=== PATIENT | female | born 1985 | race Caucasian/White ===

== ENCOUNTER 2017-05-25 17:08 | Emergency (ER) | payer SELFPAY ==
--- NOTE | 2017-05-25 17:30 | ED.PDOC ---
History of Present Illness - General Chief Complaint: Back Pain or Injury Stated Complaint: neck/back pain Time Seen by Provider: 05/25/17 17:29 Source: patient Exam Limitations: no limitations - History of Present Illness Initial Comments: Karen Serrano 32 y/o female stated for the last 2 years she had been having dull ache on her neck and mid back on and off.Denies history of trauma ,overuse injuries. No bowel or bladder dysfunction.No fever,no weight loss Timing/Duration: intermittent, other - 2 years on and off Quality/Severity: moderate Back Pain Location: C-spine, T-spine Back Pain Radiation: other - none Method of Injury/Prior Injury: unknown Improving Factors: rest Worsening Factors: movement Associated Symptoms: muscle spasms Allergies/Adverse Reactions: Allergies Sulfamethoxazole w/Trimethoprim [From Bactrim] Allergy (Verified 12/29/15 17:13) Home Medications: Ambulatory Orders HYDROcodone 10MG/APAP 325MG [[place] 10/325] 0 ea PO .Q4H PRN 12/29/15 Oxycodone HCl [Oxycontin] 15 mg PO Q4H PRN 12/29/15 tiZANidine [Zanaflex] 4 mg PO BEDTIME #20 tab 05/25/17 Review of Systems - Review of Systems Constitutional: States: no symptoms reported EENTM: States: no symptoms reported Respiratory: States: no symptoms reported Cardiology: States: no symptoms reported Gastrointestinal/Abdominal: States: no symptoms reported Genitourinary: States: no symptoms reported Musculoskeletal: States: back pain - mid back, neck pain Skin: States: no symptoms reported Neurological: States: no symptoms reported Endocrine: States: no symptoms reported Hematologic/Lymphatic: States: no symptoms reported Past Medical History (General) - Patient Medical History Hx Seizures: Yes Hx Stroke: No Hx Dementia: No Hx Asthma: No Hx of COPD: No Hx Cardiac Disorders: Yes - afib, hole in heart Hx Congestive Heart Failure: No Hx Pacemaker: No Hx Hypertension: No Hx Thyroid Disease: No Hx Diabetes: No Hx Gastroesophageal Reflux: Yes Hx Renal Disease: No Hx Cancer: No Hx of HIV: No Hx Hepatitis C: No Hx MRSA: Yes - Thigh Wound MRSA Source:: Wound Surgical History: other - x 4 - Vaccination History Hx Tetanus, Diphtheria Vaccination: Yes Hx Influenza Vaccination: Yes - 2013 Hx Pneumococcal Vaccination: No - Social History Hx Tobacco Use: Yes Hx Chewing Tobacco Use: No Hx Alcohol Use: No Hx Substance Use: No Hx Substance Use Treatment: No Hx Depression: Yes Hx Physical Abuse: No Hx Emotional Abuse: No Hx Suspected Abuse: No - Activities of Daily Living Patient Lives Alone: No - family - Female History Hx Last Menstrual Period: 05/25/17 Patient : No - unknown Family Medical History - Family History Mother Age (years): 47 Living Status: Still Living Hx Family Hypertension: Yes - parents Hx Family Cancer: Yes Father Living Status: Still Living Hx Family Hypertension: Yes Physical Exam - Physical Exam General Appearance: Alert, Comfortable, No apparent distress Eyes, Ears, Nose, Throat Exam: PERRL/EOMI, normal ENT inspection, TMs normal, pharynx normal Neck Exam: non-tender, full range of motion, normal alignment, normal inspection , muscle spasm Cardiovascular/Respiratory: regular rate, rhythm, no M/R/G, normal peripheral pulses, no JVD, no respiratory distress Peripheral Pulses: radial,right: 1+, radial,left: 1+ Gastrointestinal/Abdominal: normal bowel sounds, non tender, soft, no organomegaly Back Exam: normal inspection, muscle spasm - thoracolumbar Extremity Exam: no evidence of injury, normal range of motion, non-tender, no pedal edema Neurologic: no motor/sensory deficits, alert, normal mood/affect, oriented x 3 Skin Exam: normal color, warm/dry Progress - Progress Progress: 05/25/17 17:47 Vital Signs - 8 hr 05/25/17 17:10 Temperature 97.6 F Pulse Rate [ 82 left brachial] Respiratory 20 Rate Blood Pressure 125/87 [left brachial] O2 Sat by Pulse 96 Oximetry Departure - Departure Clinical Impression: Muscle spasms of neck Time of Disposition: 18:23 Disposition: Discharge to Home or Self Care Condition: Good Departure Forms: ED Discharge - Pt. Copy, Patient Portal Self Enrollment Instructions: DI for Neck Pain, Chronic Neck Pain, Neck Pain (Alternative Therapy) Diet: other Referrals: EDNA PAN IV, FNP [Primary Care Provider] - 1-2 Weeks Prescriptions: tiZANidine [Zanaflex] 4 mg PO BEDTIME #20 tab Home Medications: Ambulatory Orders HYDROcodone 10MG/APAP 325MG [[place] 10/325] 0 ea PO .Q4H PRN 12/29/15 Oxycodone HCl [Oxycontin] 15 mg PO Q4H PRN 12/29/15 tiZANidine [Zanaflex] 4 mg PO BEDTIME #20 tab 05/25/17
[2017-05-25 17:33] VITALS: TEMP 97.6
[2017-05-25] MEDS ORDERED: ORPHENADRINE CITRATE 30 MG/ML AMP IM ONE (17:45)
[2017-05-25] MEDS ORDERED: KETOROLAC TROMETHAMINE INJ 30 MG/ML VIAL IM ONE (17:45)
[2017-05-25 18:35] VITALS: BP 105/75; O2SAT 98
== END 2017-05-25 18:34 | disposition home or self-care (01) ==
LOC: ER 17:08
DX: M62.838 Other muscle spasm (principal); I48.91 Unspecified atrial fibrillation; K21.9 Gastro-esophageal reflux disease without esophagitis; Z86.14 Personal history of Methicillin resistant Staphylococcus aureus infection; Z88.2 Allergy status to sulfonamides; Z79.899 Other long term (current) drug therapy; Z87.891 Personal history of nicotine dependence
CPT/HCPCS: J1885; J2360

== ENCOUNTER 2017-12-05 15:37 | Emergency (ER) | payer SELFPAY ==
[2017-12-05 16:30] VITALS: BP 124/77; TEMP 97.4; O2SAT 97
--- NOTE | 2017-12-05 17:31 | ED.PDOC ---
History of Present Illness - General Chief Complaint: Abdominal Pain Stated Complaint: abdominal pain Time Seen by Provider: 12/05/17 17:19 Information Source: patient Exam Limitations: no limitations - History of Present Illness Initial Comments: Karen Serrano 32 y/o female seen in ER with protruding ventral hernia during coughing episodes.No nausea/vomiting ,no abdominal distention. Abdominal Pain Onset Location: generalized abdomen Pain Radiation: no radiation Quality: waxing/waning Timing/Duration: 7-24 hours, changing over time Improving Factors: other - laying down Worsening Factors: other - standing,coughing Review of Systems - Review of Systems Constitutional: States: no symptoms reported EENTM: States: no symptoms reported Respiratory: States: no symptoms reported Cardiology: States: see HPI Gastrointestinal/Abdominal: States: see HPI Genitourinary: States: no symptoms reported All other Systems: Reviewed and Negative, No Change from Baseline Past Medical History (General) - Patient Medical History Hx Seizures: Yes Hx Stroke: No Hx Dementia: No Hx Asthma: No Hx of COPD: No Hx Cardiac Disorders: Yes - afib, hole in heart Hx Congestive Heart Failure: No Hx Pacemaker: No Hx Hypertension: No Hx Thyroid Disease: No Hx Diabetes: No Hx Gastroesophageal Reflux: Yes Hx Renal Disease: No Hx Cancer: No Hx of HIV: No Hx Hepatitis C: No Hx MRSA: Yes - Thigh Wound MRSA Source:: Wound Surgical History: other - c-sections - Vaccination History Hx Tetanus, Diphtheria Vaccination: Yes Hx Influenza Vaccination: No Hx Pneumococcal Vaccination: No - Social History Hx Tobacco Use: Yes Hx Chewing Tobacco Use: No Hx Alcohol Use: No Hx Substance Use: No Hx Substance Use Treatment: No Hx Depression: Yes Hx Physical Abuse: No Hx Emotional Abuse: No Hx Suspected Abuse: No - Female History Patient is a Female of Child Bearing Age (10 -59 yrs old): Yes Hx Last Menstrual Period: 05/25/17 Patient : No - unknown Family Medical History - Family History Mother Age (years): 47 Living Status: Still Living Hx Family Hypertension: Yes - parents Hx Family Cancer: Yes Father Living Status: Still Living Hx Family Hypertension: Yes Physical Exam - Physical Exam General Appearance: Alert, Comfortable, No apparent distress Eyes, Ears, Nose, Throat Exam: normal ENT inspection, pharynx normal Neck: non-tender, full range of motion, supple Respiratory: chest non-tender, lungs clear, normal breath sounds Cardiovascular/Chest: normal peripheral pulses, regular rate, rhythm, no murmur Peripheral Pulses: No deficit Gastrointestinal/Abdominal: normal bowel sounds, non tender, soft, other - protruding ventral hernia reducible non incarcerated Back Exam: no CVA tenderness, no vertebral tenderness Extremity: no pedal edema, no calf tenderness Skin Exam: normal color, warm/dry Lymphatic: no adenopathy Progress - Progress Progress: 12/05/17 17:34 Last Vital Signs Temp 97.4 F L 12/05/17 16:26 Pulse 76 12/05/17 16:26 Resp 16 12/05/17 16:26 BP 124/77 12/05/17 16:26 Pulse Ox 97 12/05/17 16:26 Departure - Departure Clinical Impression: Ventral hernia Qualifiers: Obstruction and gangrene presence: without obstruction or gangrene Qualified Code(s): K43.9 - Ventral hernia without obstruction or gangrene Time of Disposition: 17:36 Disposition: Discharge to Home or Self Care Condition: Good Departure Forms: ED Discharge - Pt. Copy, Patient Portal Self Enrollment Instructions: DI for Ventral Hernia, Ventral Hernia Referrals: EDNA PAN IV SLEEVE TURNER [Primary Care Provider] - 1-2 Weeks Home Medications: Ambulatory Orders NK [NK] 12/05/17 Additional Instructions: Follow up with primary Md for referral to surgeon;Need to wear binder in am and off at bedtime when taking shower ,having bowel movement
== END 2017-12-05 17:53 | disposition left against medical advice (07) ==
LOC: ER 15:37
DX: K43.9 Ventral hernia without obstruction or gangrene (principal); I48.91 Unspecified atrial fibrillation; K21.9 Gastro-esophageal reflux disease without esophagitis

== ENCOUNTER 2017-12-06 18:02 | Emergency (ER) | payer SELFPAY ==
[2017-12-06 18:34] VITALS: TEMP 98
--- NOTE | 2017-12-06 18:53 | ED.PDOC ---
History of Present Illness - General Chief Complaint: Respiratory Problem Stated Complaint: chest congestion,cough Time Seen by Provider: 12/06/17 18:48 Source: patient Exam Limitations: no limitations - History of Present Illness Comments: Karen Serrano 32 y/o female came to ER with cough and congestion for the last 5 days no fever or chills no nausea,or vomiting,no SO Timing/Duration: constant, other - see hpi Cough Quality/Degree: dry cough Possible Cause: other - virus Improving Factors: nothing Worsening Factors: nothing Associated Symptoms: other - nasal congestion Respiratory Risk Factors: other - viral Allergies/Adverse Reactions: Allergies Sulfamethoxazole w/Trimethoprim [From Bactrim] Allergy (Verified 12/29/15 17:13) Home Medications: Ambulatory Orders NK [NK] 12/05/17 Review of Systems - Review of Systems Constitutional: States: no symptoms reported EENTM: States: see HPI, nose congestion Respiratory: States: see HPI, cough Cardiology: States: no symptoms reported Gastrointestinal/Abdominal: States: no symptoms reported Genitourinary: States: no symptoms reported All other Systems: Reviewed and Negative, No Change from Baseline Past Medical History (General) - Patient Medical History Hx Seizures: Yes Hx Stroke: No Hx Dementia: No Hx Asthma: No Hx of COPD: No Hx Cardiac Disorders: Yes - afib, hole in heart Hx Congestive Heart Failure: No Hx Pacemaker: No Hx Hypertension: No Hx Thyroid Disease: No Hx Diabetes: No Hx Gastroesophageal Reflux: Yes Hx Renal Disease: No Hx Cancer: No Hx of HIV: No Hx Hepatitis C: No Hx MRSA: Yes - Thigh Wound MRSA Source:: Wound Surgical History: other - x 4 - Vaccination History Hx Tetanus, Diphtheria Vaccination: Yes Hx Influenza Vaccination: No Hx Pneumococcal Vaccination: No - Social History Hx Tobacco Use: Yes Hx Chewing Tobacco Use: No Hx Alcohol Use: No Hx Substance Use: No Hx Substance Use Treatment: No Hx Depression: Yes Hx Physical Abuse: No Hx Emotional Abuse: No Hx Suspected Abuse: No - Female History Patient is a Female of Child Bearing Age (10 -59 yrs old): Yes Hx Last Menstrual Period: 05/25/17 Patient : No - unknown Family Medical History - Family History Mother Age (years): 47 Living Status: Still Living Hx Family Hypertension: Yes - parents Hx Family Cancer: Yes Father Living Status: Still Living Hx Family Hypertension: Yes Physical Exam - Physical Exam General Appearance: Alert, Comfortable, No apparent distress Eye Exam: bilateral normal ENT Exam: hearing grossly normal, TMs normal, pharynx normal, nasal congestion Neck: supple Respiratory: lungs clear, normal breath sounds, no respiratory distress Cardiovascular/Chest: regular rate, rhythm, no murmur Gastrointestinal/Abdominal: non tender, soft, no organomegaly Extremity: non-tender, normal inspection, no calf tenderness Skin Exam: normal color, warm/dry Progress - Progress Progress: 12/06/17 18:55 Last Vital Signs Temp 98 F 12/06/17 18:31 Pulse 110 H 12/06/17 18:31 Resp 20 12/06/17 18:47 BP 117/80 12/06/17 18:31 Pulse Ox 95 12/06/17 18:31 - Results/Orders Results/Orders: FLU A/B-negative - EKG/XRAY/CT XRAY: chest - no acute abnormalities Departure - Departure Clinical Impression: Viral URI with cough Time of Disposition: 19:37 Disposition: Discharge to Home or Self Care Departure Forms: ED Discharge - Pt. Copy, Patient Portal Self Enrollment Instructions: DI for Viral Upper Respiratory Infection -- Adult Home Medications: Ambulatory Orders NK [NK] 12/05/17 Additional Instructions: May use over the counter cough /cold medicine Delsym 2 teaspoons am/pm:Benadryl capsule-25 mg 1-2 capsules at bedtime for nasal congestion;Increase oral fluid intake ;Nasal Saline spray as needed for nasal congestion
--- NOTE | 2017-12-06 19:08 | RAD ---
EXAM DESCRIPTION: Chest,1 View CLINICAL HISTORY: cough COMPARISON: 03/22/2013 FINDINGS: Cardiac silhouette is within normal limits. There is no focal parenchymal or pleural disease. Visualized osseous structures are within normal limits. IMPRESSION: No evidence of acute cardiopulmonary disease. Electronically signed by: Dreek dArian 12/06/2017 7:08 PM [facility]
[2017-12-06 19:55] VITALS: BP 112/76; O2SAT 97
== END 2017-12-06 19:54 | disposition home or self-care (01) ==
LOC: ER 18:02
DX: J06.9 Acute upper respiratory infection, unspecified (principal); I48.91 Unspecified atrial fibrillation; K21.9 Gastro-esophageal reflux disease without esophagitis; Z87.891 Personal history of nicotine dependence

== ENCOUNTER 2017-12-27 20:58 | Emergency (ER) | payer SELFPAY ==
[2017-12-27] MEDS ORDERED: KETOROLAC TROMETHAMINE INJ 30 MG/ML VIAL IV ONE (21:19)
--- NOTE | 2017-12-27 21:24 | ED.PDOC ---
History of Present Illness - General Chief Complaint: Chest Pain/ME Time Seen by Provider: 12/27/17 21:08 Source: patient - History of Present Illness Initial Comments: SHE HAS BEEN HAVING CHEST PAINS NOW FOR TWO DAYS TIGHTNESS AND SHARP IS DESCRIBED BY THE PATIENT. NO RADIATION AND ABOUT 7/10. THE PAINS HAVE BEEN ASSOCIATED WITH SON AND NAUSEA. THE PATIENT ALSO VOICES THAT SHE HAS HAD DIARRHEA. Timing/Duration: days Severity/Quality: moderate Location: substernal Chest Pain Radiation: no radiation Improving Factors: nothing Worsening Factors: nothing Aspirin Treatment Today: no aspirin today Associated Symptoms: dizziness, shortness of breath Allergies/Adverse Reactions: Allergies Sulfamethoxazole w/Trimethoprim [From Bactrim] Allergy (Verified 12/29/15 17:13) Home Medications: Ambulatory Orders Diclofenac Potassium 50 mg PO BID #14 tab 12/27/17 Review of Systems - Review of Systems Constitutional: States: no symptoms reported EENTM: States: no symptoms reported Respiratory: States: no symptoms reported Cardiology: States: chest pain Gastrointestinal/Abdominal: States: no symptoms reported Genitourinary: States: no symptoms reported Musculoskeletal: States: no symptoms reported Skin: States: no symptoms reported Neurological: States: no symptoms reported Endocrine: States: no symptoms reported Hematologic/Lymphatic: States: no symptoms reported Past Medical History (General) - Patient Medical History Hx Seizures: Yes Hx Stroke: No Hx Dementia: No Hx Asthma: No Hx of COPD: No Hx Cardiac Disorders: Yes - afib, hole in heart Hx Congestive Heart Failure: No Hx Pacemaker: No Hx Hypertension: No Hx Thyroid Disease: No Hx Diabetes: No Hx Gastroesophageal Reflux: Yes Hx Renal Disease: No Hx Cancer: No Hx of HIV: No Hx Hepatitis C: No Hx MRSA: Yes - Thigh Wound MRSA Source:: Wound - Vaccination History Hx Tetanus, Diphtheria Vaccination: Yes Hx Influenza Vaccination: No Hx Pneumococcal Vaccination: No - Social History Hx Tobacco Use: Yes Hx Chewing Tobacco Use: No Hx Alcohol Use: No Hx Substance Use: No Hx Substance Use Treatment: No Hx Depression: Yes Hx Physical Abuse: No Hx Emotional Abuse: No Hx Suspected Abuse: No - Female History Hx Last Menstrual Period: 05/25/17 Patient : No - unknown Family Medical History - Family History Mother Age (years): 47 Living Status: Still Living Hx Family Hypertension: Yes - parents Hx Family Cancer: Yes Father Living Status: Still Living Hx Family Hypertension: Yes Physical Exam - Physical Exam General Appearance: Alert, Anxious, Well Developed, Well Groomed, Well Hydrated , Well Nourished Eyes, Ears, Nose, Throat Exam: PERRL/EOMI, normal ENT inspection Neck: non-tender, full range of motion, supple Respiratory: lungs clear, normal breath sounds Cardiovascular/Chest: normal peripheral pulses, regular rate, rhythm, no edema, no gallop, no JVD Peripheral Pulses: radial,right: 2+, radial,left: 2+ Gastrointestinal/Abdominal: normal bowel sounds, no organomegaly Rectal Exam: deferred Neurologic: no motor/sensory deficits, alert, normal mood/affect, oriented x 3 Skin Exam: normal color Progress - Results/Orders Results/Orders: EKG: HR OF 56, [place] INTERVAL OF 126, QRS OF 86, QTC OF 395, AXES OF 67 DEGREES. IMPRESSION: SINUS BRADYCARDIA, NO ACUTE INJURY PATTERN TROPONIN I LESS THAN 0.02 Departure - Departure Clinical Impression: Atypical chest pain Disposition: Discharge to Home or Self Care Condition: Good Departure Forms: ED Discharge - Pt. Copy, Patient Portal Self Enrollment Instructions: DI for Chest Pain Prescriptions: Diclofenac Potassium 50 mg PO BID #14 tab Home Medications: Ambulatory Orders Diclofenac Potassium 50 mg PO BID #14 tab 12/27/17
[2017-12-27 21:47] VITALS: TEMP 98; O2SAT 97
--- NOTE | 2017-12-27 22:01 | RAD ---
Clinical History : CHEST PAIN , MAIN Exam : Portable AP view of the chest 12/27/2017 9:18 PM [facility] Comparisons : Portable AP view of the chest December 06, 2017 Findings : The lungs are clear without focal consolidation or pleural effusion. The heart is normal in size. The mediastinal contours are normal in appearance. The thoracic spine is age appropriate. The shoulders are unremarkable. Limited evaluation of the upper abdomen demonstrates no gross abnormalities. Impression: No acute cardiopulmonary disease (stable appearing chest). Electronically signed by: Ji Salazar MD 12/27/2017 10:00 PM [facility]
[2017-12-27 23:05] VITALS: BP 109/52
== END 2017-12-27 22:45 | disposition home or self-care (01) ==
LOC: ER 20:58
DX: R07.89 Other chest pain (principal); I48.91 Unspecified atrial fibrillation; K21.9 Gastro-esophageal reflux disease without esophagitis; Z87.891 Personal history of nicotine dependence

== ENCOUNTER 2018-01-04 13:26 | Emergency (ER) | payer SELFPAY ==
[2018-01-04 13:42] VITALS: TEMP 97.4
[2018-01-04] MEDS ORDERED: KETOROLAC TROMETHAMINE INJ 30 MG/ML VIAL IV ONE (14:01)
--- NOTE | 2018-01-04 14:17 | RAD ---
PROCEDURE: XR CHEST 1 VIEW HISTORY: CP COMPARISON: 12/27/2017 TECHNIQUE: Single projection of the chest was done. FINDINGS: The lung kasper are well inflated . There are no discrete airspace infiltrates, pneumothoraces or pleural effusions. The pulmonary vascularity is normal. The cardiomediastinal silhouette is unremarkable for patient's age and sex. IMPRESSION: There is no acute pleural-parenchymal process seen in the imaged lung kasper. Location of Interpretation: [facility]iology Electronically signed by: Juancarlos Albert MD 01/04/2018 2:16 PM [facility] Workstation: [id number]
--- NOTE | 2018-01-04 14:20 | ED.PDOC ---
History of Present Illness - General Chief Complaint: Respiratory Problem Stated Complaint: recurrent pain with inspiration Time Seen by Provider: 01/04/18 14:00 Source: patient Exam Limitations: no limitations Additional Information: PT WAS SEEN 12/27 FOR SAME. C/O SHARP PAIN TO ANT CHEST. OCC RADIATION TO BACK. HAS TRIED OTC ANTACIDS WITHOUT RELIEF. - History of Present Illness Timing/Duration: 1 week Severity: moderate Improving Factors: nothing Associated Symptoms: nausea/vomiting, shortness of breath Allergies/Adverse Reactions: Allergies Sulfamethoxazole w/Trimethoprim [From Bactrim] Allergy (Verified 12/29/15 17:13) Home Medications: Ambulatory Orders Diclofenac Potassium 50 mg PO BID #14 tab 12/27/17 Doxycycline (Monohydrate) [Doxycycline Monohydrate] 100 mg PO BID #20 cap Indomethacin 50 mg PO TID PRN #14 cap 01/04/18 Review of Systems - Review of Systems Constitutional: Denies: chills, fever EENTM: States: no symptoms reported Respiratory: States: cough, short of breath, other - PROD WHITE SPUTUM. Denies : stridor, wheezing Cardiology: States: chest pain, edema. Denies: palpitations, syncope Gastrointestinal/Abdominal: States: no symptoms reported. Denies: nausea, vomiting Genitourinary: States: no symptoms reported Skin: States: no symptoms reported Neurological: States: no symptoms reported Hematologic/Lymphatic: States: no symptoms reported Past Medical History (General) - Patient Medical History Hx Seizures: Yes Hx Stroke: No Hx Dementia: No Hx Asthma: No Hx of COPD: No Hx Cardiac Disorders: Yes - afib, hole in heart Hx Congestive Heart Failure: No Hx Pacemaker: No Hx Hypertension: No Hx Thyroid Disease: No Hx Diabetes: No Hx Gastroesophageal Reflux: Yes Hx Renal Disease: No Hx Cancer: No Hx of HIV: No Hx Hepatitis C: No Hx MRSA: Yes - Thigh Wound MRSA Source:: Wound Surgical History: other - Vaccination History Hx Tetanus, Diphtheria Vaccination: Yes Hx Influenza Vaccination: No Hx Pneumococcal Vaccination: No - Social History Hx Tobacco Use: Yes Hx Chewing Tobacco Use: No Hx Alcohol Use: No Hx Substance Use: No Hx Substance Use Treatment: No Hx Depression: Yes Hx Physical Abuse: No Hx Emotional Abuse: No Hx Suspected Abuse: No - Female History Hx Last Menstrual Period: 05/25/17 Patient : No - unknown Family Medical History - Family History Mother Age (years): 47 Living Status: Still Living Hx Family Hypertension: Yes - parents Hx Family Cancer: Yes Father Family History: Unknown Living Status: Still Living Hx Family Hypertension: Yes Physical Exam - Physical Exam General Appearance: Alert, No apparent distress Eye Exam: bilateral normal Ears, Nose, Throat: hearing grossly normal, normal ENT inspection, normal pharynx Neck: non-tender, full range of motion, supple Respiratory: lungs clear, no respiratory distress Cardiovascular/Chest: regular rate, rhythm, no murmur Gastrointestinal/Abdominal: normal bowel sounds, non tender, soft, no organomegaly Extremity: normal range of motion, non-tender, no pedal edema Neurologic: no motor/sensory deficits, alert, normal mood/affect Skin Exam: normal color, warm/dry Lymphatic: no adenopathy Progress - Progress Progress: 01/04/18 15:27 PT STILL C/O PAIN. REVIEWED POSSIBLE CAUSES, AND PT STATES SHE DID NOT FILL RX FROM LAST VISIT (DICLOFENAC). SHE ASKED IF ANXIETY COULD BE PLAYING A PART OR ALL OF THE SX'S. 01/04/18 15:30 - EKG/XRAY/CT EKG: Sinus - 62, NL AXIS, NL INTERVALS, , no ST T wave changes, Unchanged from - 12/27/2016 XRAY: chest - LEONEL Departure - Departure Clinical Impression: Bronchitis, Chest wall pain, Anxiety ICD-10 Supporting Text: DDX: PLEURISY Time of Disposition: 15:35 Disposition: Discharge to Home or Self Care Condition: Good Departure Forms: ED Discharge - Pt. Copy, Patient Portal Self Enrollment Instructions: DI for Acute Bronchitis Prescriptions: Doxycycline (Monohydrate) [Doxycycline Monohydrate] 100 mg PO BID #20 cap Indomethacin 50 mg PO TID PRN #14 cap PRN Reason: Pain Home Medications: Ambulatory Orders Diclofenac Potassium 50 mg PO BID #14 tab 12/27/17 Doxycycline (Monohydrate) [Doxycycline Monohydrate] 100 mg PO BID #20 cap Indomethacin 50 mg PO TID PRN #14 cap 01/04/18 Additional Instructions: DO NOT TAKE INDOMETHACIN WITH DICLOFENAC
[2018-01-04 15:44] VITALS: BP 121/85; O2SAT 100
== END 2018-01-04 15:50 | disposition home or self-care (01) ==
LOC: ER 13:26
DX: R07.89 Other chest pain (principal); J40 Bronchitis, not specified as acute or chronic; F41.9 Anxiety disorder, unspecified; I48.91 Unspecified atrial fibrillation; K21.9 Gastro-esophageal reflux disease without esophagitis; Z87.891 Personal history of nicotine dependence
CPT/HCPCS: 36415; 71045; 80053; 85025; 85379; 93005; J1885

== ENCOUNTER 2018-06-03 11:56 | Emergency (ER) | payer SELFPAY ==
[2018-06-03 12:07] VITALS: TEMP 97.6; O2SAT 100
--- NOTE | 2018-06-03 13:26 | RAD ---
Frontal, lateral, and oblique views of the right wrist. Indication: trauma Comparison: None Impression: Ghost tracks noted in the distal radius and ulna metadiaphyses from suspected hardware removal. Remote distal radial metaphysis fracture suspected and appears largely healed. Remote ununited ulnar styloid fracture noted as well. No gross displaced acute fracture. If high clinical concern for acute fracture, correlation with CT or MRI recommended. Electronically signed by: Jakob Martell MD 06/03/2018 1:25 PM CDT
[2018-06-03] MEDS ORDERED: KETOROLAC TROMETHAMINE INJ 60 MG/2 ML VIAL IM ONE (13:54)
--- NOTE | 2018-06-03 14:04 | ED.PDOC ---
History of Present Illness - General Chief Complaint: Upper Extremity Injury Time Seen by Provider: 06/03/18 12:30 Source: patient Exam Limitations: no limitations - History of Present Illness Occurred: yesterday Severity: moderate Pain Location: upper extremity Method of Injury: fall Improving Factors: immobilization Worsening Factors: movement Loss of Consciousness: no loss of consciousness Associated Symptoms (Fall): denies symptoms Allergies/Adverse Reactions: Allergies Sulfamethoxazole w/Trimethoprim [From Bactrim] Allergy (Verified 12/29/15 17:13) Home Medications: Ambulatory Orders Diclofenac Potassium 50 mg PO BID #14 tab 12/27/17 Doxycycline (Monohydrate) [Doxycycline Monohydrate] 100 mg PO BID #20 cap Indomethacin 50 mg PO TID PRN #14 cap 01/04/18 cloNAZepam [KlonoPIN] 0.5 mg PO BID PRN #10 tab 01/04/18 Review of Systems - Review of Systems Constitutional: States: no symptoms reported EENTM: States: no symptoms reported Respiratory: States: no symptoms reported Cardiology: States: no symptoms reported Gastrointestinal/Abdominal: States: no symptoms reported Genitourinary: States: no symptoms reported Musculoskeletal: States: see HPI, joint pain, joint swelling. Denies: back pain , gout, neck pain Skin: Denies: lesions, rash Neurological: States: pre-existing deficit. Denies: numbness, weakness Endocrine: States: no symptoms reported Hematologic/Lymphatic: States: no symptoms reported All other Systems: Reviewed and Negative Past Medical History (General) - Patient Medical History Hx Seizures: Yes Hx Stroke: No Hx Dementia: No Hx Asthma: No Hx of COPD: No Hx Cardiac Disorders: No Hx Congestive Heart Failure: No Hx Pacemaker: No Hx Hypertension: No Hx Thyroid Disease: No Hx Diabetes: No Hx Gastroesophageal Reflux: Yes Hx Renal Disease: No Hx Cancer: No Hx of HIV: No Hx Hepatitis C: No Hx MRSA: Yes - Thigh Wound MRSA Source:: Wound - Vaccination History Hx Tetanus, Diphtheria Vaccination: No Hx Influenza Vaccination: No Hx Pneumococcal Vaccination: No Immunizations Up to Date: No - Social History Hx Tobacco Use: No Hx Chewing Tobacco Use: No Hx Alcohol Use: No Hx Substance Use: No Hx Substance Use Treatment: No Hx Depression: Yes Feels Threatened In Home Enviroment: No Feels Threatened In a Relationship: No Hx Physical Abuse: No Hx Emotional Abuse: No Hx Suspected Abuse: No - Activities of Daily Living Hospice Agency (if applicable):: None - Female History Patient is a Female of Child Bearing Age (10 -59 yrs old): Yes Hx Last Menstrual Period: 05/25/17 Patient : Yes Family Medical History - Family History Mother Age (years): 47 Living Status: Still Living Hx Family Hypertension: Yes - parents Hx Family Cancer: Yes Father Family History: Unknown Living Status: Still Living Hx Family Hypertension: Yes Physical Exam - Physical Exam General Appearance: Alert, Well Nourished Head Injury: no evidence of injury Eye Exam: bilateral normal ENT Exam: hearing grossly normal, no evidence of ENT injury Neck Exam: full range of motion, normal inspection Cardiovascular/Respiratory: regular rate, rhythm, no M/R/G, normal breath sounds , no respiratory distress Back Exam: normal inspection, no vertebral tenderness Extremity Exam: pain with movement, tenderness, other - R WRIST - NO DEFORMITY. TENDONS IN TACT. PAIN IN ULNAR ASPECT WITH FLEX/EXT. NO SNUFF BOX TENDERNESS. NO MOTOR. Neurologic: no motor/sensory deficits, alert, normal mood/affect Skin Exam: normal color, warm/dry - Jose Miguel Coma Score Marcell[place] Total: 15 Progress - Progress Progress: 06/03/18 14:10 R WRIST SPRAIN/STRAIN. XRAY NEG FOR ACUTE FRX. REMOTE DISTAL RADIAL FRX AND ULNAR STYLOID FRX VISIBLE. R.I.C.E. MOTRIN. Departure - Departure Clinical Impression: Right wrist sprain, Right wrist pain Disposition: Discharge to Home or Self Care Condition: Good Departure Forms: ED Discharge - Pt. Copy, Patient Portal Self Enrollment Instructions: Wrist Sprain (DC) Diet: resume usual diet Activity: increase activity as tolerated Home Medications: Ambulatory Orders Diclofenac Potassium 50 mg PO BID #14 tab 12/27/17 Doxycycline (Monohydrate) [Doxycycline Monohydrate] 100 mg PO BID #20 cap Indomethacin 50 mg PO TID PRN #14 cap 01/04/18 cloNAZepam [KlonoPIN] 0.5 mg PO BID PRN #10 tab 01/04/18 Additional Instructions: Please continue the ibuprofen 800 mg 3 times per day for 7 days. Limit use of the wrist. Use a wrist brace as needed. Apply ice packs. Elevate the wrist on a pillow at night. Please see your regular doctor if it is not improving in 1 week.
[2018-06-03 14:43] VITALS: BP 109/73
== END 2018-06-03 14:50 | disposition home or self-care (01) ==
LOC: ER 11:56
DX: S63.501A Unspecified sprain of right wrist, initial encounter (principal); K21.9 Gastro-esophageal reflux disease without esophagitis; W19.XXXA Unspecified fall, initial encounter; Y92.9 Unspecified place or not applicable
CPT/HCPCS: 73110; J1885

== ENCOUNTER 2018-07-24 22:30 | Emergency (ER) | payer SELFPAY ==
--- NOTE | 2018-07-24 22:56 | ED.PDOC ---
History of Present Illness - General Chief Complaint: Abdominal Pain Stated Complaint: Right lower abd pain x 3 days with N/V/D x 2 days Time Seen by Provider: 07/24/18 22:44 Source: patient Exam Limitations: no limitations - History of Present Illness Initial Comments: Patient presents with RLQ pain for 3 days. It is cramping in nature and non- radiating, constant, worse with movement or pressure, better with rest. Denies previous episodes. Two days ago she started having N/V/D. She has been eating less but that is because of the N/V. She says she wants to eat but is having trouble. Is s/p C/S x 4 but denies other surgeries. Takes 1-2 [place] 10s per day for LBP. No other complaints. LMP 06/18/2018. Allergies/Adverse Reactions: Allergies Sulfamethoxazole w/Trimethoprim [From Bactrim] Allergy (Verified 12/29/15 17:13) Home Medications: Ambulatory Orders Diclofenac Potassium 50 mg PO BID #14 tab 12/27/17 Doxycycline (Monohydrate) [Doxycycline Monohydrate] 100 mg PO BID #20 cap Indomethacin 50 mg PO TID PRN #14 cap 01/04/18 cloNAZepam [KlonoPIN] 0.5 mg PO BID PRN #10 tab 01/04/18 Past Medical History (General) - Patient Medical History Hx Seizures: Yes Hx Stroke: No Hx Dementia: No Hx Asthma: No Hx of COPD: No Hx Cardiac Disorders: No Hx Congestive Heart Failure: No Hx Pacemaker: No Hx Hypertension: No Hx Thyroid Disease: No Hx Diabetes: No Hx Gastroesophageal Reflux: Yes Hx Renal Disease: No Hx Cancer: No Hx of HIV: No Hx Hepatitis C: No Hx MRSA: Yes - Thigh Wound MRSA Source:: Wound - Vaccination History Hx Tetanus, Diphtheria Vaccination: No Hx Influenza Vaccination: No Hx Pneumococcal Vaccination: No - Social History Hx Tobacco Use: No Hx Chewing Tobacco Use: No Hx Alcohol Use: No Hx Substance Use: No Hx Substance Use Treatment: No Hx Depression: Yes Hx Physical Abuse: No Hx Emotional Abuse: No Hx Suspected Abuse: No - Female History Hx Last Menstrual Period: 05/25/17 Patient : Yes Family Medical History - Family History Mother Age (years): 47 Living Status: Still Living Hx Family Hypertension: Yes - parents Hx Family Cancer: Yes Father Family History: Unknown Living Status: Still Living Hx Family Hypertension: Yes Progress - Progress Progress: 07/25/18 09:55 Patient left AMA without leaving a reason. Departure - Departure Clinical Impression: Left against medical advice Time of Disposition: 02:00 Disposition: Left Against Medical Advice Departure Forms: ED Discharge - Pt. Copy, Patient Portal Self Enrollment Instructions: DI for Abdominal Pain-Adult Home Medications: Ambulatory Orders Diclofenac Potassium 50 mg PO BID #14 tab 12/27/17 Doxycycline (Monohydrate) [Doxycycline Monohydrate] 100 mg PO BID #20 cap Indomethacin 50 mg PO TID PRN #14 cap 01/04/18 cloNAZepam [KlonoPIN] 0.5 mg PO BID PRN #10 tab 01/04/18
[2018-07-24 22:57] VITALS: BP 131/85; TEMP 96.9; O2SAT 98
== END 2018-07-24 23:33 | disposition left against medical advice (07) ==
LOC: ER 22:30
DX: R10.31 Right lower quadrant pain (principal); R11.2 Nausea with vomiting, unspecified; R19.7 Diarrhea, unspecified; M54.5 Low back pain; K21.9 Gastro-esophageal reflux disease without esophagitis; Z53.29 Procedure and treatment not carried out because of patient's decision for other reasons; Z79.891 Long term (current) use of opiate analgesic; Z88.2 Allergy status to sulfonamides

== ENCOUNTER 2018-09-23 10:43 | Emergency (ER) | payer SELFPAY ==
[2018-09-23 11:02] VITALS: BP 126/91; TEMP 97.3; O2SAT 97
[2018-09-23] MEDS ORDERED: BENZONATATE PERLES 100 MG CAP PO ONE (11:13)
[2018-09-23] MEDS ORDERED: IBUPROFEN 200 MG TAB PO ONE (11:13)
[2018-09-23] MEDS ORDERED: AZITHROMYCIN 250 MG TAB PO ONE (11:13)
--- NOTE | 2018-09-23 11:16 | ED.PDOC ---
History of Present Illness - General Chief Complaint: General Stated Complaint: Cough/congestion Time Seen by Provider: 09/23/18 11:12 Source: patient Exam Limitations: no limitations - History of Present Illness Initial Comments: PT PRESENTS TO THE ED WITH 1 WEEK HISTORY OF COUGH, CONGESTION, SORE THROAT AND FEVER. PT REPORTS TAKING OTC MEDICATIONS WITH MINIMAL IMPROVEMENT IN SYMPTOMS. Severity: moderate Associated Symptoms: cough, fever/chills Allergies/Adverse Reactions: Allergies Sulfamethoxazole w/Trimethoprim [From Bactrim] Allergy (Verified 09/23/18 11:06) Home Medications: Ambulatory Orders Azithromycin Tab [Zithromax] 250 mg PO QD #4 tab 09/23/18 Benzonatate Perles [Tessalon Perles] 200 mg PO TID PRN #30 cap 09/23/18 Ibuprofen 800 mg PO Q8HR PRN #30 tab 09/23/18 Review of Systems - Review of Systems Constitutional: States: chills, fever EENTM: States: nose congestion, throat pain. Denies: ear pain, throat swelling Respiratory: States: cough. Denies: short of breath Cardiology: Denies: chest pain, palpitations Gastrointestinal/Abdominal: Denies: nausea, vomiting Genitourinary: Denies: dysuria, frequency Musculoskeletal: Denies: joint pain, joint swelling Neurological: States: headache. Denies: numbness Past Medical History (General) - Patient Medical History Hx Seizures: Yes Hx Stroke: No Hx Dementia: No Hx Asthma: No Hx of COPD: No Hx Cardiac Disorders: No Hx Congestive Heart Failure: No Hx Pacemaker: No Hx Hypertension: No Hx Thyroid Disease: No Hx Diabetes: No Hx Gastroesophageal Reflux: Yes Hx Renal Disease: No Hx Cancer: No Hx of HIV: No Hx Hepatitis C: No Hx MRSA: No MRSA Source:: Wound Surgical History: other - Vaccination History Hx Tetanus, Diphtheria Vaccination: No Hx Influenza Vaccination: No Hx Pneumococcal Vaccination: No - Social History Hx Tobacco Use: No Hx Chewing Tobacco Use: No Hx Alcohol Use: No Hx Substance Use: No Hx Substance Use Treatment: No Hx Depression: Yes Hx Physical Abuse: No Hx Emotional Abuse: No Hx Suspected Abuse: No - Female History Hx Last Menstrual Period: 05/25/17 Patient : Yes Family Medical History - Family History Mother Age (years): 47 Living Status: Still Living Hx Family Hypertension: Yes - parents Hx Family Cancer: Yes Father Family History: Unknown Living Status: Still Living Hx Family Hypertension: Yes Physical Exam - Physical Exam General Appearance: Alert, Comfortable, Well Developed, Well Groomed, Well Hydrated Eye Exam: bilateral normal Ears, Nose, Throat: hearing grossly normal, pharyngeal erythema, other - NORMAL TMS BILATERALLY Neck: lymphadenopathy (R), lymphadenopathy (L) Respiratory: lungs clear, normal breath sounds, no respiratory distress, no accessory muscle use Cardiovascular/Chest: regular rate, rhythm, no murmur Gastrointestinal/Abdominal: non tender, soft Extremity: normal inspection Neurologic: alert, normal mood/affect, oriented x 3 Skin Exam: normal color, warm/dry Progress - EKG/XRAY/CT XRAY: chest - no acute findings as per rad Departure - Departure Clinical Impression: Bronchitis, Pharyngitis Time of Disposition: 11:40 Disposition: Discharge to Home or Self Care Condition: Good Departure Forms: ED Discharge - Pt. Copy, Patient Portal Self Enrollment Referrals: [facility] [Provider Group] - 1 Week Prescriptions: Ibuprofen 800 mg PO Q8HR PRN #30 tab PRN Reason: Pain Azithromycin Tab [Zithromax] 250 mg PO QD #4 tab Benzonatate Perles [Tessalon Perles] 200 mg PO TID PRN #30 cap PRN Reason: Cough Home Medications: Ambulatory Orders Azithromycin Tab [Zithromax] 250 mg PO QD #4 tab 09/23/18 Benzonatate Perles [Tessalon Perles] 200 mg PO TID PRN #30 cap 09/23/18 Ibuprofen 800 mg PO Q8HR PRN #30 tab 09/23/18
--- NOTE | 2018-09-23 11:33 | RAD ---
EXAM DESCRIPTION: Chest,2 Views CLINICAL HISTORY: 33 years Female, cough congestion COMPARISON: 04 January 2018 TECHNIQUE: PA/lateral FINDINGS: There is no cardiac or pulmonary abnormality. The lungs are clear. There is no effusion. IMPRESSION: 1. Normal two-view chest. Electronically signed by: David Carter MD 09/23/2018 11:32 AM [facility]
== END 2018-09-23 11:45 | disposition home or self-care (01) ==
LOC: ER 10:43
DX: J40 Bronchitis, not specified as acute or chronic (principal); J02.9 Acute pharyngitis, unspecified; K21.9 Gastro-esophageal reflux disease without esophagitis; F32.9 Major depressive disorder, single episode, unspecified; Z88.2 Allergy status to sulfonamides
CPT/HCPCS: 71046; Q0144

== ENCOUNTER 2019-02-20 19:27 | Emergency (ER) | payer SELFPAY ==
[2019-02-20 19:46] VITALS: TEMP 96.5; O2SAT 99
--- NOTE | 2019-02-20 21:26 | ED.PDOC ---
History of Present Illness - General Chief Complaint: Abdominal Pain Stated Complaint: lower abd pain Time Seen by Provider: 02/20/19 20:42 Information Source: patient Exam Limitations: no limitations - History of Present Illness Initial Comments: Karen Serrano 33 y/o female came to ER with sharp suprapubic and left sided abdominal pain intermittent with diarrhea x 3 this am;No N/V,no dysuria ;denies vaginal discharge,no loos of appetite,able to eat Abdominal Pain Onset Location: LLQ, suprapubic Pain Radiation: no radiation Quality: moderate, sharpness Timing/Duration: 7-24 hours Improving Factors: nothing Worsening Factors: nothing Associated Symptoms: denies symptoms Review of Systems - Review of Systems Constitutional: States: no symptoms reported EENTM: States: no symptoms reported Respiratory: States: no symptoms reported Cardiology: States: no symptoms reported Gastrointestinal/Abdominal: States: see HPI Genitourinary: States: no symptoms reported Musculoskeletal: States: no symptoms reported Skin: States: no symptoms reported Past Medical History (General) - Patient Medical History Hx Seizures: Yes Hx Stroke: No Hx Dementia: No Hx Asthma: No Hx of COPD: No Hx Cardiac Disorders: No Hx Congestive Heart Failure: No Hx Pacemaker: No Hx Hypertension: No Hx Thyroid Disease: No Hx Diabetes: No Hx Gastroesophageal Reflux: Yes Hx Renal Disease: No Hx Cancer: No Hx of HIV: No Hx Hepatitis C: No Hx MRSA: No MRSA Source:: Wound Surgical History: other - c- sections - Vaccination History Hx Tetanus, Diphtheria Vaccination: Yes Hx Influenza Vaccination: No Hx Pneumococcal Vaccination: No Immunizations Up to Date: Yes - Social History Hx Tobacco Use: No Hx Chewing Tobacco Use: No Hx Alcohol Use: No Hx Substance Use: No Hx Substance Use Treatment: No Hx Depression: Yes Hx Physical Abuse: No Hx Emotional Abuse: No Hx Suspected Abuse: No - Activities of Daily Living Hospice Agency (if applicable):: None - Female History Patient is a Female of Child Bearing Age (10 -59 yrs old): Yes Hx Last Menstrual Period: 02/09/19 Patient : No Family Medical History - Family History Mother Age (years): 47 Living Status: Still Living Hx Family Hypertension: Yes - parents Hx Family Cancer: Yes Father Family History: Unknown Living Status: Still Living Hx Family Hypertension: Yes Physical Exam - Physical Exam General Appearance: Alert, Comfortable, No apparent distress Eyes, Ears, Nose, Throat Exam: PERRL/EOMI, normal ENT inspection Neck: non-tender, full range of motion, supple Respiratory: chest non-tender, lungs clear, normal breath sounds Cardiovascular/Chest: normal peripheral pulses, regular rate, rhythm, no murmur Gastrointestinal/Abdominal: soft, no organomegaly, tenderness - left side and suprapubic area;no peritoneal signs Back Exam: normal inspection, no CVA tenderness, no vertebral tenderness Progress - Progress Progress: 02/20/19 21:30 Vital Signs - 8 hr 02/20/19 02/20/19 19:31 19:42 Temperature 96.5 F L Pulse Rate [ 65 65 monitor] Respiratory 18 18 Rate Blood Pressure 132/81 [Left Arm] O2 Sat by Pulse 99 Oximetry - Results/Orders Results/Orders: 02/20/19 20:05 Abdomen Series [RAD] Stat 02/20/19 21:20 Abdoment/Pelvis w/o Contrast [CT] Stat Laboratory Results - last 24 hr 02/20/19 02/20/19 02/20/19 19:38 19:42 20:24 WBC 6.4 RBC 4.44 Hgb 12.5 Hct 37.8 MCV 85.2 MCH 28.2 MCHC 33.1 RDW 16.0 H Plt Count 209 MPV 9.8 Absolute Neuts (auto) 3.20 Absolute Lymphs (auto) 2.60 Absolute Monos (auto) 0.40 Absolute Eos (auto) 0.10 Absolute Basos (auto) 0.10 Neutrophils % 50.1 Lymphocytes % 40.3 Monocytes % 6.3 Eosinophils % 2.3 Basophils % 1.0 Sodium Potassium Chloride Carbon Dioxide Anion Gap BUN Creatinine BUN/Creatinine Ratio Random Glucose Serum Osmolality Calcium Total Bilirubin AST ALT Alkaline Phosphatase Serum Total Protein Albumin Globulin Albumin/Globulin Ratio Urine Color Yellow Urine Appearance Clear Urine pH 6.5 Ur Specific [place] 1.020 Urine Protein Negative Urine Glucose (UA) Negative Urine Ketones Negative Urine Blood Trace-lysed H Urine Nitrite Negative Urine Bilirubin Negative Urine Urobilinogen 0.2 Ur Leukocyte Esterase Negative Urine RBC 3-5 H Urine WBC 1-3 Ur Epithelial Cells 1-3 Amorphous Sediment 1+ Urine Bacteria Rare Urine Mucus Small Urine HCG, Qual Negative 02/20/19 20:24 WBC RBC Hgb Hct MCV MCH MCHC RDW Plt Count MPV Absolute Neuts (auto) Absolute Lymphs (auto) Absolute Monos (auto) Absolute Eos (auto) Absolute Basos (auto) Neutrophils % Lymphocytes % Monocytes % Eosinophils % Basophils % Sodium 136 Potassium 3.0 L Chloride 103 Carbon Dioxide 24 Anion Gap 12.0 BUN 11 Creatinine 0.75 BUN/Creatinine Ratio 14.7 Random Glucose 99 Serum Osmolality 271.4 L Calcium 8.3 L Total Bilirubin 0.2 AST 13 ALT 12 Alkaline Phosphatase 70 Serum Total Protein 6.4 Albumin 3.5 Globulin 2.9 Albumin/Globulin Ratio 1.2 Urine Color Urine Appearance Urine pH Ur Specific [place] Urine Protein Urine Glucose (UA) Urine Ketones Urine Blood Urine Nitrite Urine Bilirubin Urine Urobilinogen Ur Leukocyte Esterase Urine RBC Urine WBC Ur Epithelial Cells Amorphous Sediment Urine Bacteria Urine Mucus Urine HCG, Qual - EKG/XRAY/CT XRAY: abdomen - no acute abnormalities Departure - Departure Clinical Impression: Hypokalemia Abdominal pain Qualifiers: Abdominal location: lower abdomen, unspecified Qualified Code(s): R10.30 - Lower abdominal pain, unspecified Time of Disposition: 21:37 Disposition: Discharge to Home or Self Care Condition: Good Departure Forms: ED Discharge - Pt. Copy, Patient Portal Self Enrollment Instructions: DI for Abdominal Pain-Adult, Hypokalemia (DC) Referrals: Nathan Olea MD [Primary Care Provider] - 1-2 Weeks Prescriptions: Tramadol HCl 50 mg PO Q6HR #14 tab Promethazine Tab [Phenergan Tablet] 25 mg PO .Q4H #10 tab Home Medications: Ambulatory Orders Azithromycin Tab [Zithromax] 250 mg PO QD #4 tab 09/23/18 Benzonatate Perles [Tessalon Perles] 200 mg PO TID PRN #30 cap 09/23/18 Ibuprofen 800 mg PO Q8HR PRN #30 tab 09/23/18 Promethazine Tab [Phenergan Tablet] 25 mg PO .Q4H #10 tab 02/20/19 Tramadol HCl 50 mg PO Q6HR #14 tab 02/20/19 Additional Instructions: AVOID GREASY SPICY FOODS UNTIL BETTER;Return to ER as needed
--- NOTE | 2019-02-20 21:32 | RAD ---
EXAM: Abdomen Series CLINICAL INDICATION: 33-year-old female with lower abdominal pain. TECHNIQUE: Single view, PA chest was obtained. Two views of the abdomen were obtained in upright and supine positioning. COMPARISON: None. FINDINGS: Chest: Unremarkable cardiac and mediastinal silhouette. Heart size is normal. Lungs are clear without focal opacity, pneumothorax or pleural effusions. The visualized bones are within normal limits. Abdomen: Gas is seen within normal caliber small and large bowel. Moderate volume of fecal content throughout the ascending and proximal transverse colon. No free air is identified. There are no abnormal calcifications. The osseous structures are within normal limits. The lung bases are clear. IMPRESSION: 1. No acute cardiopulmonary abnormalities. 2. Normal bowel gas pattern. Electronically signed by: Jessica Sawant MD 02/20/2019 9:29 PM CDT
[2019-02-20] MEDS ORDERED: HYDROcodone 10MG/APAP 325MG 1 EA TAB PO ONE (21:34)
[2019-02-20] MEDS ORDERED: PROMETHAZINE TAB (ER DISP) 25 MG TAB PO ONE (21:34)
[2019-02-20] MEDS ORDERED: PROMETHAZINE HCL 25 MG TAB PO ONE (21:34)
[2019-02-20 21:53] VITALS: BP 128/76
== END 2019-02-20 21:53 | disposition home or self-care (01) ==
LOC: ER 19:27
DX: R10.32 Left lower quadrant pain (principal); E87.6 Hypokalemia; R56.9 Unspecified convulsions; K21.9 Gastro-esophageal reflux disease without esophagitis; F32.9 Major depressive disorder, single episode, unspecified
CPT/HCPCS: 36415; 74019; 80053; 81001; 81025; 85025; Q0169

== ENCOUNTER 2019-04-30 | Emergency (ER) | payer SELFPAY | END 2019-04-30 14:37 | disposition home or self-care (01) ==

== ENCOUNTER 2019-05-14 13:26 | Emergency (ER) | payer SELFPAY ==
[2019-05-14 13:45] VITALS: BP 124/75; TEMP 96.4; O2SAT 98
--- NOTE | 2019-05-14 13:51 | ED.PDOC ---
History of Present Illness - General Chief Complaint: Behavioral / Psych Stated Complaint: panic attacks Time Seen by Provider: 05/14/19 13:39 Source: patient Exam Limitations: no limitations - History of Present Illness Initial Comments: Karen Zaragoza 33 y/o female with history of panic attacks in the past came to ER heart raising,feels getting suffocated,breathing heavy on and off for the last 2 days .Had this same problem since she was 20 y/o.Used to take Alprazolam,clonazepam.Denies harm to self/others. Timing/Duration: yesterday Severity: moderate Episode Description: see hpi Associated Symptoms: anxiety Allergies/Adverse Reactions: Allergies Sulfamethoxazole w/Trimethoprim [From Bactrim] Allergy (Verified 09/23/18 11:06) Home Medications: Ambulatory Orders Buprenorphine HCl-Naloxone HCl [Buprenorphine Hydrochlori 8-2 mg] 1 mis SL TID 05/14/19 Clonazepam 2 mg PO ACHS #1 tab 05/14/19 Review of Systems - Review of Systems Neurological: States: see HPI, emotional problems All other Systems: Reviewed and Negative, No Change from Baseline Past Medical History (General) - Patient Medical History Hx Seizures: Yes Hx Stroke: No Hx Dementia: No Hx Asthma: No Hx of COPD: No Hx Cardiac Disorders: No Hx Congestive Heart Failure: No Hx Pacemaker: No Hx Hypertension: No Hx Thyroid Disease: No Hx Diabetes: No Hx Gastroesophageal Reflux: Yes Hx Renal Disease: No Hx Cancer: No Hx of HIV: No Hx Hepatitis C: No Hx MRSA: No MRSA Source:: Wound Surgical History: other - c- section - Vaccination History Hx Tetanus, Diphtheria Vaccination: No Hx Influenza Vaccination: Yes Hx Pneumococcal Vaccination: No - Social History Hx Tobacco Use: Yes Hx Chewing Tobacco Use: No Hx Alcohol Use: No Hx Substance Use: No Hx Substance Use Treatment: No Hx Depression: Yes Hx Physical Abuse: No Hx Emotional Abuse: No Hx Suspected Abuse: No - Female History Hx Last Menstrual Period: 02/09/19 Patient : No Family Medical History - Family History Mother Age (years): 47 Living Status: Still Living Hx Family Hypertension: Yes - parents Hx Family Cancer: Yes Father Family History: Unknown Living Status: Still Living Hx Family Hypertension: Yes Physical Exam - Physical Exam General Appearance: Alert, Comfortable, No apparent distress Eyes, Ears, Nose, Throat Exam: normal ENT inspection Neck: non-tender, full range of motion, normal inspection Respiratory: lungs clear, normal breath sounds, no respiratory distress Cardiovascular/Chest: normal peripheral pulses, regular rate, rhythm, no murmur Peripheral Pulses: radial,right: 2+, radial,left: 2+ Gastrointestinal/Abdominal: non tender, soft Neurological: alert, calm, oriented x 3 Appearance: appropriate appearance, neat, no memory impairment Behavior/Eye Contact/Speech: cooperative, good eye contact, normal speech Thoughts/Hallucinations: normal thought pattern, no apparent hallucination Skin Exam: normal color, warm/dry Progress - Progress Progress: 05/14/19 13:54 05/14/19 13:53 cloNAZepam [KlonoPIN] 2 mg PO ONCE ONE Vital Signs - 8 hr 05/14/19 13:41 Temperature 96.4 F L Pulse Rate [ 67 left brachial] Respiratory 16 Rate Blood Pressure 124/75 [left brachial] O2 Sat by Pulse 98 Oximetry 05/14/19 13:54 Patient DEclined to have written prescription for Zolof,or paxil.Advised to see [facility] in AM Departure - Departure Clinical Impression: Panic anxiety syndrome Time of Disposition: 13:56 Disposition: Discharge to Home or Self Care Condition: Fair Departure Forms: ED Discharge - Pt. Copy, Patient Portal Self Enrollment Instructions: Panic Disorder (DC) Prescriptions: Clonazepam 2 mg PO ACHS #1 tab Home Medications: Ambulatory Orders Buprenorphine HCl-Naloxone HCl [Buprenorphine Hydrochlori 8-2 mg] 1 mis SL TID 05/14/19 Clonazepam 2 mg PO ACHS #1 tab 05/14/19 Additional Instructions: NEED TO FOLLOW UP WITH [facility] [address] [place] [address]. Phone-[phone]
== END 2019-05-14 14:15 | disposition home or self-care (01) ==
LOC: ER 13:26
DX: F41.0 Panic disorder [episodic paroxysmal anxiety] (principal); F32.9 Major depressive disorder, single episode, unspecified; K21.9 Gastro-esophageal reflux disease without esophagitis; Z87.891 Personal history of nicotine dependence; Z88.2 Allergy status to sulfonamides

== ENCOUNTER 2019-05-16 13:10 | Emergency (ER) | payer SELFPAY ==
[2019-05-16 13:31] VITALS: TEMP 98.6
--- NOTE | 2019-05-16 13:38 | ED.PDOC ---
History of Present Illness - General Chief Complaint: Behavioral / Psych Stated Complaint: panic arracks Time Seen by Provider: 05/16/19 13:13 Source: patient Exam Limitations: no limitations - History of Present Illness Initial Comments: Karen Berrios 33 y/o female with history of panic attacks stated that she had same symptoms as she had with feeling heart racing sob feels getting suffocated.Had used clonazepam and Alprazolam in the past.Was seen 14 May 2019 prescribed Clonazepam. Timing/Duration: week - 1 Severity: mild Episode Description: see hpi Allergies/Adverse Reactions: Allergies Sulfamethoxazole w/Trimethoprim [From Bactrim] Allergy (Verified 09/23/18 11:06) Home Medications: Ambulatory Orders Buprenorphine HCl-Naloxone HCl [Buprenorphine Hydrochlori 8-2 mg] 1 mis SL TID 05/14/19 Clonazepam 2 mg PO BID #1 tab 05/16/19 Review of Systems - Review of Systems Neurological: States: see HPI, anxiety All other Systems: Reviewed and Negative, No Change from Baseline Past Medical History (General) - Patient Medical History Hx Seizures: Yes Hx Stroke: No Hx Dementia: No Hx Asthma: No Hx of COPD: No Hx Cardiac Disorders: No Hx Congestive Heart Failure: No Hx Pacemaker: No Hx Hypertension: No Hx Thyroid Disease: No Hx Diabetes: No Hx Gastroesophageal Reflux: Yes Hx Renal Disease: No Hx Cancer: No Hx of HIV: No Hx Hepatitis C: No Hx MRSA: No MRSA Source:: Wound Surgical History: other - Vaccination History Hx Tetanus, Diphtheria Vaccination: No Hx Influenza Vaccination: Yes Hx Pneumococcal Vaccination: No - Social History Hx Tobacco Use: Yes Hx Chewing Tobacco Use: No Hx Alcohol Use: No Hx Substance Use: No Hx Substance Use Treatment: No Hx Depression: Yes Hx Physical Abuse: No Hx Emotional Abuse: No Hx Suspected Abuse: No - Female History Hx Last Menstrual Period: 02/09/19 Patient : No Family Medical History - Family History Mother Age (years): 47 Living Status: Still Living Hx Family Hypertension: Yes - parents Hx Family Cancer: Yes Father Family History: Unknown Living Status: Still Living Hx Family Hypertension: Yes Physical Exam - Physical Exam General Appearance: Alert, Anxious, No apparent distress Eyes, Ears, Nose, Throat Exam: normal ENT inspection Neck: normal inspection Respiratory: lungs clear, normal breath sounds, no respiratory distress Cardiovascular/Chest: normal peripheral pulses, regular rate, rhythm, no murmur Peripheral Pulses: radial,right: 2+, radial,left: 2+ Gastrointestinal/Abdominal: soft Extremities Exam: no edema Neurological: alert, calm, oriented x 3 Appearance: appropriate appearance, appropriate insight, no memory impairment Behavior/Eye Contact/Speech: cooperative, good eye contact, normal speech Thoughts/Hallucinations: normal thought pattern, no apparent hallucination Skin Exam: normal color, warm/dry Progress - Progress Progress: 05/16/19 13:42 Vital Signs - 8 hr 05/16/19 13:18 Temperature 98.6 F Pulse Rate [ 98 H left brachial] Respiratory 18 Rate Blood Pressure 126/77 [right brachial ] O2 Sat by Pulse 99 Oximetry - Results/Orders Results/Orders: Laboratory Results - last 24 hr 05/16/19 05/16/19 14:07 14:07 WBC 7.2 RBC 4.62 Hgb 13.2 Hct 39.4 MCV 85.2 MCH 28.5 MCHC 33.5 RDW 15.4 H Plt Count 208 MPV 10.0 Absolute Neuts (auto) 4.40 Absolute Lymphs (auto) 2.20 Absolute Monos (auto) 0.40 Absolute Eos (auto) 0.20 Absolute Basos (auto) 0.10 Neutrophils % 60.8 Lymphocytes % 30.0 Monocytes % 5.4 Eosinophils % 2.9 Basophils % 0.9 PT 10.5 INR 1.05 PTT (SP) 26.2 Sodium 138 Potassium 3.7 Chloride 108 Carbon Dioxide 21 Anion Gap 12.7 BUN 24 H Creatinine 0.58 L BUN/Creatinine Ratio 41.4 H Random Glucose 124 H Serum Osmolality 281.1 Calcium 8.7 Magnesium 1.9 Total Bilirubin < 0.2 L Direct Bilirubin < 0.1 Indirect Bilirubin 0.1 L AST 21 ALT 17 Alkaline Phosphatase 74 Creatine Kinase 85 CK-MB (CK-2) 1.1 CK-MB (CK-2) % Not Reportable Troponin I < 0.02 Serum Total Protein 6.9 Albumin 4.0 Serum HCG, Qual Negative - EKG/XRAY/CT XRAY: chest - no acute abnormalities Departure - Departure Clinical Impression: Panic anxiety syndrome Time of Disposition: 15:03 Disposition: Discharge to Home or Self Care Condition: Fair Departure Forms: ED Discharge - Pt. Copy, Patient Portal Self Enrollment Instructions: Panic Disorder (DC) Referrals: UNKNOWN,PHYSICIAN [Primary Care Provider] - 1-2 Weeks Prescriptions: Clonazepam 2 mg PO BID #1 tab Home Medications: Ambulatory Orders Buprenorphine HCl-Naloxone HCl [Buprenorphine Hydrochlori 8-2 mg] 1 mis SL TID 05/14/19 Clonazepam 2 mg PO BID #1 tab 05/16/19
[2019-05-16 13:42] VITALS: O2SAT 99
--- NOTE | 2019-05-16 14:56 | RAD ---
Procedure: XR CHEST 1 VIEW Exam Date: 05/16/2019 2:03 PM CDT Ordering Provider: Clark Rizzo Clinical Indication: sob Comparison: 2018 Findings: The lungs are clear and well-aerated. No pleural effusion or pneumothorax. Cardiac silhouette is normal in size. Impression: No acute pulmonary process. Electronically signed by: Terri Love MD 05/16/2019 2:54 PM CDT
[2019-05-16 15:26] VITALS: BP 128/81
== END 2019-05-16 15:15 | disposition home or self-care (01) ==
LOC: ER 13:10
DX: F41.0 Panic disorder [episodic paroxysmal anxiety] (principal); F32.9 Major depressive disorder, single episode, unspecified; R56.9 Unspecified convulsions; K21.9 Gastro-esophageal reflux disease without esophagitis; Z87.891 Personal history of nicotine dependence; Z88.2 Allergy status to sulfonamides

== ENCOUNTER 2019-06-25 18:16 | Emergency (ER) | payer SELFPAY ==
--- NOTE | 2019-06-25 19:20 | ED.PDOC ---
History of Present Illness - General Chief Complaint: General Stated Complaint: squeezing epigastric discomfort Time Seen by Provider: 06/25/19 18:56 Source: patient Exam Limitations: no limitations - History of Present Illness Initial Comments: Karen Serrano 34 y/o female stated that she had been having squeezing epigastric discomfort on and off for the last one week and feeling of anxiety.Stated that there has been several stressors in her family at present.Has history of panic attacks and anxiety symptoms but has;also appointment with her psychologist still in July next month.Denies N/V;SOB;chest pains also not getting enough sleep recently. Timing/Duration: 1 week, intermittent Allergies/Adverse Reactions: Allergies Sulfamethoxazole w/Trimethoprim [From Bactrim] Allergy (Verified 09/23/18 11:06) Home Medications: Ambulatory Orders Buprenorphine HCl-Naloxone HCl [Buprenorphine Hydrochlori 8-2 mg] 1 mis SL TID 05/14/19 Clonazepam 2 mg PO BID #1 tab 05/16/19 Triazolam [Halcion] 0.25 mg PO BEDTIME PRN #4 tab 06/25/19 cloNAZepam [Klonopin] 2 mg PO BID #6 tab 06/25/19 Past Medical History (General) - Patient Medical History Hx Seizures: Yes Hx Stroke: No Hx Dementia: No Hx Asthma: No Hx of COPD: No Hx Cardiac Disorders: No Hx Congestive Heart Failure: No Hx Pacemaker: No Hx Hypertension: No Hx Thyroid Disease: No Hx Diabetes: No Hx Gastroesophageal Reflux: Yes Hx Renal Disease: No Hx Cancer: No Hx of HIV: No Hx Hepatitis C: No Hx MRSA: No MRSA Source:: Wound Surgical History: other - - Vaccination History Hx Tetanus, Diphtheria Vaccination: No Hx Influenza Vaccination: Yes Hx Pneumococcal Vaccination: No - Social History Hx Tobacco Use: Yes Hx Chewing Tobacco Use: No Hx Alcohol Use: No Hx Substance Use: No Hx Substance Use Treatment: No Hx Depression: Yes Hx Physical Abuse: No Hx Emotional Abuse: No Hx Suspected Abuse: No - Female History Hx Last Menstrual Period: 06/24/19 Patient : No Family Medical History - Family History Mother Age (years): 47 Living Status: Still Living Hx Family Hypertension: Yes - parents Hx Family Cancer: Yes Father Family History: Unknown Living Status: Still Living Hx Family Hypertension: Yes Physical Exam - Physical Exam General Appearance: Alert, Anxious, No apparent distress Eye Exam: bilateral normal Ears, Nose, Throat: hearing grossly normal, normal ENT inspection, normal pharynx Neck: non-tender, supple, normal inspection Respiratory: lungs clear, normal breath sounds Cardiovascular/Chest: normal peripheral pulses, regular rate, rhythm, no murmur Peripheral Pulses: radial,right: 2+, radial,left: 2+ Gastrointestinal/Abdominal: non tender, soft Back Exam: normal inspection, no CVA tenderness, no vertebral tenderness Extremity: no pedal edema Neurologic: alert, oriented x 3 Skin Exam: normal color, warm/dry Departure - Departure Clinical Impression: Anxiety attack Time of Disposition: 19:25 Disposition: Discharge to Home or Self Care Condition: Fair Departure Forms: ED Discharge - Pt. Copy, Patient Portal Self Enrollment Instructions: Anxiety, Adult (DC), Generalized Anxiety Disorder (DC), Stress Prescriptions: cloNAZepam [Klonopin] 2 mg PO BID #6 tab Triazolam [Halcion] 0.25 mg PO BEDTIME PRN #4 tab PRN Reason: Insomnia Home Medications: Ambulatory Orders Buprenorphine HCl-Naloxone HCl [Buprenorphine Hydrochlori 8-2 mg] 1 mis SL TID 05/14/19 Clonazepam 2 mg PO BID #1 tab 05/16/19 Triazolam [Halcion] 0.25 mg PO BEDTIME PRN #4 tab 06/25/19 cloNAZepam [Klonopin] 2 mg PO BID #6 tab 06/25/19 Additional Instructions: Keep appointment with Psychologist as scheduled next month;Return to emergency Room as needed
[2019-06-25 20:10] VITALS: BP 124/78; TEMP 97; O2SAT 98
== END 2019-06-25 20:00 | disposition home or self-care (01) ==
LOC: ER 18:16
DX: F41.0 Panic disorder [episodic paroxysmal anxiety] (principal); F32.9 Major depressive disorder, single episode, unspecified; K21.9 Gastro-esophageal reflux disease without esophagitis; R56.9 Unspecified convulsions; Z87.891 Personal history of nicotine dependence; Z79.899 Other long term (current) drug therapy; Z88.2 Allergy status to sulfonamides

== ENCOUNTER 2020-08-12 14:40 | Emergency (ER) | payer SELFPAY ==
[2020-08-12] MEDS ORDERED: LIDOCAINE 1% W/ EPINEPHRINE 20 ML VIAL INJ STA (15:03)
[2020-08-12] MEDS ORDERED: IODOFORM 1/4 INCH 1 EA BTTL TOP ONE (15:15)
--- NOTE | 2020-08-12 15:38 | ED.PDOC ---
History of Present Illness - General Chief Complaint: Skin/Abrasion/Tear Stated Complaint: sores to right arm Time Seen by Provider: 08/12/20 15:03 Source: patient Additional Information: SEVERAL SMALL RED NODULES ON RIGHT ELBOW AREA X 12-18 HOURS, HX OF MULTIPLE PRIOR EPISODES OF MRSA. - History of Present Illness Allergies/Adverse Reactions: Allergies Albuterol Allergy (Verified 08/12/20 14:57) Ibuprofen Allergy (Verified 08/12/20 14:57) Sulfamethoxazole w/Trimethoprim [From Bactrim] Allergy (Verified 09/23/18 11:06) Home Medications: Ambulatory Orders Doxycycline Hyclate 100 mg PO BID #20 cap 08/12/20 Sertraline HCl [Zoloft] 50 mg PO DAILY 08/12/20 cloNAZepam [Klonopin] 0.5 mg PO TID 08/12/20 Review of Systems - Review of Systems Constitutional: States: no symptoms reported EENTM: States: no symptoms reported Respiratory: States: no symptoms reported Gastrointestinal/Abdominal: States: no symptoms reported Genitourinary: States: no symptoms reported Past Medical History (General) - Patient Medical History Hx Seizures: Yes Hx Stroke: No Hx Dementia: No Hx Asthma: No Hx of COPD: No Hx Cardiac Disorders: No Hx Congestive Heart Failure: No Hx Pacemaker: No Hx Hypertension: No Hx Thyroid Disease: No Hx Diabetes: No Hx Gastroesophageal Reflux: Yes Hx Renal Disease: No Hx Cancer: No Hx of HIV: No Hx Hepatitis C: No Hx MRSA: No MRSA Source:: Wound - Vaccination History Hx Tetanus, Diphtheria Vaccination: No Hx Influenza Vaccination: No Hx Pneumococcal Vaccination: No - Social History Hx Tobacco Use: Yes Hx Chewing Tobacco Use: No Hx Alcohol Use: No Hx Substance Use: No Hx Substance Use Treatment: No Hx Depression: Yes Hx Physical Abuse: No Hx Emotional Abuse: No Hx Suspected Abuse: No - Female History Patient is a Female of Child Bearing Age (10 -59 yrs old): Yes Hx Last Menstrual Period: 06/24/19 Patient : No Family Medical History - Family History Mother Age (years): 47 Living Status: Still Living Hx Family Hypertension: Yes - parents Hx Family Cancer: Yes Father Family History: Unknown Living Status: Still Living Hx Family Hypertension: Yes Physical Exam - Physical Exam General Appearance: Alert, Well Developed, Well Groomed, Well Hydrated, Well Nourished Respiratory: no respiratory distress, no accessory muscle use Extremity: swelling - RIGHT ELBOW AREA, ONE OF THE NODULES HAS A 2 X2 CM AREA OF INDURATION, CANNOT APPRECIATE ANY FLUCTULANCE PER SE. PATIENT IS INSISTING ON I&D TO MAKE SURE THERE IS NOT RETAINED ABSCESS EXUDATE IN THE LESION. Procedures - Incision and Drainage #1 Procedure and Prep: betadine prep, sterile dressings applied, gauze wick placed, wound culture collected, pus drained - MINIMAL IF ANY, TEASPOON OR TWO OF BLOOD OBTAINED. ONLY Blade Size: 11 Departure - Departure Clinical Impression: Abscess Disposition: Discharge to Home or Self Care Condition: Good Departure Forms: ED Discharge - Pt. Copy, Patient Portal Self Enrollment Instructions: DI for Abrasion Referrals: EDNA PAN IV, CLIENT SERVICE CONSULTANT [Primary Care Provider] - 1-2 Weeks Prescriptions: Doxycycline Hyclate 100 mg PO BID #20 cap Home Medications: Ambulatory Orders Doxycycline Hyclate 100 mg PO BID #20 cap 08/12/20 Sertraline HCl [Zoloft] 50 mg PO DAILY 08/12/20 cloNAZepam [Klonopin] 0.5 mg PO TID 08/12/20 Additional Instructions: OTC IBUPROFEN 800 MG THREE TIMES PER DAY NEEDED FOR DISCOMFORT. HEATING PAD NEEDED FOR DISCOMFORT.
[2020-08-12 15:48] VITALS: BP 138/80; TEMP 98.2; O2SAT 98
== END 2020-08-12 15:46 | disposition home or self-care (01) ==
LOC: ER 14:40
DX: L02.413 Cutaneous abscess of right upper limb (principal); F32.9 Major depressive disorder, single episode, unspecified; R56.9 Unspecified convulsions; K21.9 Gastro-esophageal reflux disease without esophagitis; Z87.891 Personal history of nicotine dependence; Z79.899 Other long term (current) drug therapy; Z88.8 Allergy status to other drugs, medicaments and biological substances; Z88.6 Allergy status to analgesic agent; Z88.2 Allergy status to sulfonamides

== ENCOUNTER 2020-11-08 08:56 | Emergency (ER) | payer SELFPAY ==
--- NOTE | 2020-11-08 09:31 | ED.PDOC ---
History of Present Illness - General Chief Complaint: General Stated Complaint: bodyaches Time Seen by Provider: 11/08/20 09:14 Source: patient, RN notes reviewed, Vital Signs reviewed Exam Limitations: no limitations - History of Present Illness Initial Comments: Patient is a 35-year-old white female who presents with complaints of fever, body aches and generalized malaise and fatigue x3 to 4 days. The symptoms have been getting worse. Her work sent her here for evaluation and to rule out Covid. Patient also complains of a cough that is productive for a greenish sputum. Patient states that she has had fever to 100 degrees. The symptoms are moderate in intensity. They are constant. They are worsening. Patient denies any headaches, dizziness, blurry vision. Patient also complains of nausea, vomiting, diarrhea. Mild shortness of breath. Her symptoms are worse with exertion. Better and improved with rest. Timing/Duration: constant, getting worse Severity: moderate Improving Factors: rest Worsening Factors: movement Associated Symptoms: cough, fever/chills, other - diarrhea Allergies/Adverse Reactions: Allergies Albuterol Allergy (Verified 08/12/20 14:57) Ibuprofen Allergy (Verified 08/12/20 14:57) Sulfamethoxazole w/Trimethoprim [From Bactrim] Allergy (Verified 09/23/18 11:06) Home Medications: Ambulatory Orders Doxycycline Hyclate 100 mg PO BID #20 cap 08/12/20 Sertraline HCl [Zoloft] 50 mg PO DAILY 08/12/20 cloNAZepam [Klonopin] 0.5 mg PO TID 08/12/20 Ondansetron [Ondansetron Odt] 4 mg PO Q6H #20 tab 11/08/20 Review of Systems - Review of Systems Constitutional: States: see HPI, fever, malaise, weakness EENTM: States: no symptoms reported. Denies: eye pain, blurred vision, double vision, throat pain Respiratory: States: see HPI, cough, short of breath. Denies: stridor, wheezing Cardiology: States: no symptoms reported. Denies: chest pain, palpitations, syncope Gastrointestinal/Abdominal: States: see HPI, diarrhea, nausea, vomiting. Denies: abdominal pain Genitourinary: States: no symptoms reported. Denies: dysuria, frequency Musculoskeletal: States: see HPI, joint pain, muscle pain Skin: States: no symptoms reported. Denies: change in color, rash Neurological: States: see HPI, weakness. Denies: headache, tingling, tremors Endocrine: States: no symptoms reported. Denies: increased hunger, increased thirst, increased urine Hematologic/Lymphatic: States: no symptoms reported. Denies: blood clots, easy bleeding All other Systems: Reviewed and Negative Past Medical History (General) - Patient Medical History Hx Seizures: Yes Hx Stroke: No Hx Dementia: No Hx Asthma: No Hx of COPD: No Hx Cardiac Disorders: No Hx Congestive Heart Failure: No Hx Pacemaker: No Hx Hypertension: No Hx Thyroid Disease: No Hx Diabetes: No Hx Gastroesophageal Reflux: Yes Hx Renal Disease: No Hx Cancer: No Hx of HIV: No Hx Hepatitis C: No Hx MRSA: No MRSA Source:: Wound - Vaccination History Hx Tetanus, Diphtheria Vaccination: No Hx Influenza Vaccination: No Hx Pneumococcal Vaccination: No - Social History Hx Tobacco Use: Yes Hx Chewing Tobacco Use: No Hx Alcohol Use: No Hx Substance Use: No Hx Substance Use Treatment: No Hx Depression: Yes Hx Physical Abuse: No Hx Emotional Abuse: No Hx Suspected Abuse: No - Female History Hx Last Menstrual Period: 06/24/19 Patient : No Family Medical History - Family History Mother Age (years): 47 Living Status: Still Living Hx Family Hypertension: Yes - parents Hx Family Cancer: Yes Father Family History: Unknown Living Status: Still Living Hx Family Hypertension: Yes Physical Exam - Physical Exam General Appearance: Alert, Anxious, Unkempt, Well Developed, Well Hydrated, Well Nourished Eye Exam: bilateral normal Ears, Nose, Throat: hearing grossly normal, pharyngeal erythema, tonsillar swelling Neck: non-tender, full range of motion, supple, lymphadenopathy (R), lymphadenopathy (L) Respiratory: chest non-tender, lungs clear, normal breath sounds, no respiratory distress, no accessory muscle use Cardiovascular/Chest: normal peripheral pulses, regular rate, rhythm, no edema, no gallop, no JVD, no murmur Peripheral Pulses: radial,right: 2+, radial,left: 2+ Gastrointestinal/Abdominal: normal bowel sounds, non tender, soft, other - Pt is obese Back Exam: normal inspection, no CVA tenderness, no vertebral tenderness Extremity: normal range of motion, non-tender, normal inspection Neurologic: wheel and pinion inspector II-XII nml as tested, alert, normal mood/affect, oriented x 3 Skin Exam: normal color, warm/dry, other - pt with tatoos Lymphatic: other - mild bilateral submandibular LAD. Progress - Progress Progress: Differential diagnosis: Pneumonia, influenza, Covid, viral URI among others. 11/08/20 10:17 Patient's chest x-ray is negative for pneumonia. Her Covid testing is pending but will be back in the next hour and we will call her with the results. Her Monospot and strep are negative. I suspect she has a viral upper respiratory tract infection with a cough. Plan on discharge home with follow-up with PCP. I discussed this plan of care with the patient and she voices understanding and agreement. Harshal Martin M.D. #[id number] - Results/Orders Results/Orders: EXAM DESCRIPTION: Chest,2 Views CLINICAL HISTORY: 35 years Female, cough and fever COMPARISON: May 16, 2019 FINDINGS: 2 views/radiographs Heart size and pulmonary vessels are within normal limits. There is no pneumothorax or pleural effusion. The lungs are clear bilaterally. The soft tissues are unremarkable. No acute osseous findings. IMPRESSION: No acute cardiopulmonary abnormality. Electronically signed by: Ambrose Glover MD 11/08/2020 9:57 AM 11/08/20 09:14 Isolation:Airborne ONCE 11/08/20 09:34 STREP A SCREEN CULTURE Stat Laboratory Results - last 24 hr 11/08/20 11/08/20 11/08/20 09:30 09:30 09:30 WBC 6.2 RBC 4.01 L Hgb 11.7 L Hct 35.2 L MCV 87.7 MCH 29.2 MCHC 33.3 RDW 14.1 Plt Count 254 MPV 9.1 Absolute Neuts (auto) 3.50 Absolute Lymphs (auto) 2.10 Absolute Monos (auto) 0.40 Absolute Eos (auto) 0.30 Absolute Basos (auto) 0.10 Neutrophils % 55.8 Lymphocytes % 33.4 Monocytes % 5.9 Eosinophils % 4.1 Basophils % 0.8 D-Dimer, Quantitative < 131.0 L Sodium 139 Potassium 4.1 Chloride 106 Carbon Dioxide 26 Anion Gap 11.1 L BUN 26 H Creatinine 0.70 BUN/Creatinine Ratio 37.1 H Random Glucose 107 H Serum Osmolality 282.8 Calcium 8.5 Total Bilirubin 0.2 AST 18 ALT 16 Alkaline Phosphatase 79 Serum Total Protein 6.7 Albumin 3.6 Globulin 3.1 Albumin/Globulin Ratio 1.2 Monoscreen Group A Strep Rapid 11/08/20 11/08/20 09:30 09:34 WBC RBC Hgb Hct MCV MCH MCHC RDW Plt Count MPV Absolute Neuts (auto) Absolute Lymphs (auto) Absolute Monos (auto) Absolute Eos (auto) Absolute Basos (auto) Neutrophils % Lymphocytes % Monocytes % Eosinophils % Basophils % D-Dimer, Quantitative Sodium Potassium Chloride Carbon Dioxide Anion Gap BUN Creatinine BUN/Creatinine Ratio Random Glucose Serum Osmolality Calcium Total Bilirubin AST ALT Alkaline Phosphatase Serum Total Protein Albumin Globulin Albumin/Globulin Ratio Monoscreen Negative Group A Strep Rapid Negative Respiratory panel is negative for influenza, Covid and other viral illnesses. Vital Signs 11/08/20 11/08/20 09:30 10:30 Temperature 98.0 F 97.0 F L Pulse Rate [ 86 95 H left brachial] Respiratory 20 20 Rate Blood Pressure 107/83 101/76 [left brachial] O2 Sat by Pulse 100 99 Oximetry Departure - Departure Clinical Impression: Viral upper respiratory tract infection with cough, Viral illness, Dehydration, Viral gastroenteritis Time of Disposition: 10:20 Disposition: Discharge to Home or Self Care Condition: Good Departure Forms: ED Discharge - Pt. Copy, ED Discharge - Work Release, Patient Portal Self Enrollment Instructions: Dehydration, Adult (DC), Viral Upper Respiratory Infection, Adult (DC), Viral Gastroenteritis, Adult (DC) Diet: resume usual diet Activity: increase activity as tolerated Referrals: EDNA PAN IV, EARLY CHILDHOOD ASSOCIATE [Primary Care Provider] - 1-5 Days Prescriptions: Ondansetron [Ondansetron Odt] 4 mg PO Q6H #20 tab Home Medications: Ambulatory Orders Doxycycline Hyclate 100 mg PO BID #20 cap 08/12/20 Sertraline HCl [Zoloft] 50 mg PO DAILY 08/12/20 cloNAZepam [Klonopin] 0.5 mg PO TID 08/12/20 Ondansetron [Ondansetron Odt] 4 mg PO Q6H #20 tab 11/08/20
--- NOTE | 2020-11-08 09:59 | RAD ---
EXAM DESCRIPTION: Chest,2 Views CLINICAL HISTORY: 35 years Female, cough and fever COMPARISON: May 16, 2019 FINDINGS: 2 views/radiographs Heart size and pulmonary vessels are within normal limits. There is no pneumothorax or pleural effusion. The lungs are clear bilaterally. The soft tissues are unremarkable. No acute osseous findings. IMPRESSION: No acute cardiopulmonary abnormality. Electronically signed by: Ambrose Glover MD 11/08/2020 9:57 AM [facility]
[2020-11-08 10:48] VITALS: BP 101/76; TEMP 97; O2SAT 99
== END 2020-11-08 10:30 | disposition home or self-care (01) ==
LOC: ER 08:56
DX: J06.9 Acute upper respiratory infection, unspecified (principal); A08.4 Viral intestinal infection, unspecified; E86.0 Dehydration; Z20.828 Contact with and (suspected) exposure to other viral communicable diseases; F32.9 Major depressive disorder, single episode, unspecified; K21.9 Gastro-esophageal reflux disease without esophagitis; R56.9 Unspecified convulsions; Z87.891 Personal history of nicotine dependence; Z79.899 Other long term (current) drug therapy; Z88.8 Allergy status to other drugs, medicaments and biological substances; Z88.6 Allergy status to analgesic agent; Z88.2 Allergy status to sulfonamides